=== PATIENT | male | born 2000 | race Asian ===

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

== ENCOUNTER → 2019-01-18 | Outpatient (CLI) | payer BC ==
--- NOTE | 2019-01-21 13:48 | CPEEG ---
[f rep st] ELECTROENCEPHALOGRAM 4-HOUR VIDEO EEG. DATE OF STUDY: 01/18/2019 DATE OF INTERPRETATION: 01/21/2019. INTERPRETATION: This 4-hour video EEG recording is normal. There were no potentially epileptogenic abnormalities present during the awake or sleep recordings. The patient did not have any clinical ev ents during the video EEG monitoring session. REPORT: This 4-hour video EEG contains 10 Hz alpha activity over the posterior head regions. There was no abnormal activation at rest, during photic stimulation, or hyperventilation. The patient sol me drowsy and fell asleep during the study. There was no abnormal activation during drowsiness, slee p, or during times of arousal. The patient did not have any clinical events during the video EEG mon itoring session. /[id number]/MODL
== END ==
LOC: FCPNEURO 08:15
PROVIDERS: ATTEND Psychiatry & Neurology Neurology
DX: G40.909 Epilepsy, unspecified, not intractable, without status epilepticus (principal)